=== PATIENT | female | born 1935 | race African-American/Black ===

== ENCOUNTER 2018-06-03 14:50 | Inpatient (IN) | payer MEDICARE ==
[~2018-06-03] VITALS: Ht 170.2 cm; Wt 87.1 kg
[2018-06-03] MEDS ORDERED: FUROSEMIDE40 MG ORAL (15:07)
[2018-06-03] MEDS ORDERED: POTASSIUM99 M3 PO (15:07)
[2018-06-03] MEDS ORDERED: FISH OIL CAP1000 MG ORAL (15:07)
[2018-06-03] MEDS ORDERED: ASPIR 8181 MG ORAL (15:07)
[2018-06-03] MEDS ORDERED: ALLOPURINOL100 M1 ORAL (15:07)
[2018-06-03] MEDS ORDERED: LEVOTHYROXINE75 MCG ORAL (15:07)
[2018-06-03] MEDS ORDERED: MULTIVITAMINS1 EAC2 ORAL (15:07)
[2018-06-03] MEDS ORDERED: OXYTROL1 EACH ORAL (15:07)
[2018-06-03] MEDS ORDERED: LISINOPRIL40 MG ORAL (15:07)
[2018-06-03] MEDS ORDERED: CATAPRES0.2 MG ORAL (15:07)
[2018-06-03] MEDS ORDERED: Sodium Chloride 500ML 500 ML IV ONE (15:10)
--- NOTE | 2018-06-03 15:11 | Emergency Room Report ---
History of Present Illness General Chief Complaint: Generalized Weakness Source: Patient Present Illness HPI 83-year-old female with a history of hypertension hypothyroidism many of generalized weakness for the last 3 days. Patient states that she's been feeling generally weak even though she has been eating and drinking. She lives alone. States that she is more dizzy even when she walks. No shortness chest pain or shortness of breath no syncopal episodes. No fever no chills or abdominal pain Allergies: Coded Allergies: No Known Allergies (Unverified , 06/03/18) Patient History Past Medical History: see triage record Past Surgical History: none Pertinent Family History: none Reviewed Nursing Documentation: PMH: Agreed; PSxH: Agreed Nursing Documentation-PMH Hx Hypertension: Yes Review of Systems All Other Systems: negative except mentioned in HPI Physical Exam Vital Signs Date Time Temp Pulse Resp B/P (MAP) Pulse Ox O2 Delivery O2 Flow Rate FiO2 06/03/18 15:01 98.0 87 18 125/75 97 Room Air 98.1 Sp02 EP Interpretation: reviewed, normal General Appearance: alert, GCS 15, non-toxic, moderate distress Head: normocephalic, atraumatic Eyes: bilateral eye normal inspection, bilateral eye PERRL, bilateral eye EOMI ENT: normal ENT inspection, normal pharynx, normal voice, moist mucus membranes Neck: normal inspection, full range of motion, supple Respiratory: normal inspection, lungs clear, normal breath sounds, no respiratory distress, no retraction, no wheezing, speaking full sentences, chest symmetrical Cardiovascular #1: normal inspection, regular rate, rhythm, no edema, normal capillary refill Cardiovascular #2: 2+ radial (R), 2+ radial (L) Gastrointestinal: normal inspection, non tender, soft, non-distended, no guarding Musculoskeletal: normal inspection, back normal, normal range of motion, non- tender Neurologic: normal inspection, alert, oriented x3, responsive, motor strength/ tone normal, sensory intact, normal gait, speech normal Psychiatric: normal inspection, judgement/insight normal, memory normal Skin: normal inspection, normal color, no rash, warm/dry, well hydrated, normal turgor Medical Decision Making Diagnostic Impression: Primary Impression: Atrial fibrillation Additional Impressions: Generalized weakness UTI (urinary tract infection) ER Course 83-year-old female with generalized weakness and dizziness DDX: Vasovagal vs. orthostatic / hypovolemic/dehydration vs. cardiac arrhythmia (SVT , Afib) vs. cardiac (, ACS) vs. PE vs. metabolic (hypoglycemia, hypoxia), vs neuro (seizure, CVA, intracranial bleed) Plan: bgm, cbc, bmp, ekg, cxr consider IVF ER course: Patient has remained stable during ED stay. +afib on monitor and on EKG states she has never had this before continues to feel weak, given fluids abx given for uti Disposition: Patient requires admission to telemetry. D/W hospitalist Dr gates Please note that this Emergency Department Report was dictated using [employer] chaser technology software, occasionally this can lead to erroneous entry secondary to interpretation by the dictation equipment EKG Diagnostic Results EP Interpretation: Yes Rate: normal Rhythm: Atrial fibrillation ST Segments: ASA given to patient: No Rhythm Strip EP Interpretation: Yes Rate: 79 Rhythm: Atrial fibrillation Chest X-ray CXR: Ordered: Yes 1 view Indication: Syncope EP interpretation: Yes Interpretation: No consolidation, no effusion, no PTX, no acute cardiopulmonary disease Impression: No acute disease Electronically signed by Chon Gardner MD Laboratory Tests Test 06/03/18 15:03 06/03/18 15:30 06/03/18 15:45 White Blood Count 7.2 K/UL (4.8-10.8) Red Blood Count 4.46 M/UL (4.20-5.40) Hemoglobin 13.5 G/DL (12.0-16.0) Hematocrit 40.8 % (37.0-47.0) Mean Corpuscular Volume 92 FL (80-99) Mean Corpuscular Hemoglobin 30.3 PG (27.0-31.0) Mean Corpuscular Hemoglobin Concent 33.1 G/DL (32.0-36.0) Red Cell Distribution Width 12.8 % (11.6-14.8) Platelet Count 168 K/UL (150-450) Mean Platelet Volume 7.5 FL (6.5-10.1) Neutrophils (%) (Auto) 60.0 % (45.0-75.0) Lymphocytes (%) (Auto) 28.1 % (20.0-45.0) Monocytes (%) (Auto) 9.3 % (1.0-10.0) Eosinophils (%) (Auto) 1.1 % (0.0-3.0) Basophils (%) (Auto) 1.5 % (0.0-2.0) Sodium Level 139 MMOL/L (136-145) Potassium Level 4.9 MMOL/L (3.5-5.1) Chloride Level 105 MMOL/L (98-107) Carbon Dioxide Level 23 MMOL/L (21-32) Anion Gap 11 mmol/L (5-15) Blood Urea Nitrogen 21 mg/dL (7-18) H Creatinine 1.4 MG/DL (0.55-1.30) H Estimate Glomerular Filtration Rate mL/min (>60) Glucose Level 102 MG/DL (74-106) Calcium Level 9.4 MG/DL (8.5-10.1) Total Bilirubin 0.6 MG/DL (0.2-1.0) Aspartate Amino Transferase (AST) 27 U/L (15-37) Alanine Aminotransferase (ALT) 24 U/L (12-78) Alkaline Phosphatase 87 U/L (46-116) Total Creatine Kinase 112 U/L (26-308) Troponin I 0.010 ng/mL (0.000-0.056) Pro-B-Type Natriuretic Peptide 1168 pg/mL (0-125) H Total Protein 8.2 G/DL (6.4-8.2) Albumin 3.1 G/DL (3.4-5.0) L Globulin 5.1 g/dL Albumin/Globulin Ratio 0.6 (1.0-2.7) L Prothrombin Time 10.9 SEC (9.30-11.50) Prothrombin Time INR 1.0 (0.9-1.1) PTT 22 SEC (23-33) L Urine Color Pending Urine Appearance Pending Urine pH Pending Urine Specific [place] Pending Urine Protein Pending Urine Glucose (UA) Pending Urine Ketones Pending Urine Occult Blood Pending Urine Nitrite Pending Urine Bilirubin Pending Urine Urobilinogen Pending Urine Leukocyte Esterase Pending Last Vital Signs Date Time Temp Pulse Resp B/P (MAP) Pulse Ox O2 Delivery O2 Flow Rate FiO2 06/03/18 15:01 98.0 87 18 125/75 97 Room Air 98.1 Disposition: ADMITTED INPATIENT Condition: Serious Chon Gardner M.D. Jun 03, 2018 15:11
[2018-06-03 15:45] LABS: BASOPHILS % (AUTO) 1.5 % (0.0-2.0); EOSINOPHILS % (AUTO) 1.1 % (0.0-3.0); HEMATOCRIT 40.8 % (37.0-47.0); HEMOGLOBIN 13.5 G/DL (12.0-16.0); LYMPHOCYTES % (AUTO) 28.1 % (20.0-45.0); MEAN CORPUSCULAR VOLUME 92 FL (80-99); MONOCYTES % (AUTO) 9.3 % (1.0-10.0); PLATELET COUNT 168 K/UL (150-450); RED BLOOD COUNT 4.46 M/UL (4.20-5.40); RED CELL DISTRIBUTION WIDTH 12.8 % (11.6-14.8); WHITE BLOOD COUNT 7.2 K/UL (4.8-10.8)
--- NOTE | 2018-06-03 15:49 | Diagnostic Imaging Report ---
Indication: Chest Technique: XRAY Chest 1v Comparison: None Findings: Heart size within normal limits given technique. There is no focal consolidation, pneumothorax or pleural effusion. Osseous structures demonstrate no acute abnormality. Impression: No radiographic evidence of acute cardiopulmonary disease.
[2018-06-03 15:51] VITALS: BP 117/71
[2018-06-03 15:55] LABS: ANION GAP 11 mmol/L (5-15); BLOOD UREA NITROGEN 21 mg/dL (7-18); CALCIUM 9.4 MG/DL (8.5-10.1); CARBON DIOXIDE 23 MMOL/L (21-32); CHLORIDE 105 MMOL/L (98-107); CREATININE 1.4 MG/DL (0.55-1.30); POTASSIUM 4.9 MMOL/L (3.5-5.1); SODIUM 139 MMOL/L (136-145)
[2018-06-03 16:05] LABS: ALANINE AMINOTRANSFERASE 24 U/L (12-78); ALBUMIN 3.1 G/DL (3.4-5.0); ALBUMIN/GLOBULIN RATIO 0.6 (1.0-2.7); ALKALINE PHOSPHATASE 87 U/L (46-116); ASPARTATE AMINO TRANSFERASE 27 U/L (15-37); BILIRUBIN,TOTAL 0.6 MG/DL (0.2-1.0); CREATINE KINASE 112 U/L (26-308)
[2018-06-03] MEDS ORDERED: DITROPAN10 MG ORAL (17:43)
[2018-06-03 20:02] LABS: APPEARANCE,URINE CLEAR; BILIRUBIN, URINE NEGATIVE (NEGATIVE); GLUCOSE, URINE (UA) NEGATIVE (NEGATIVE); KETONES,URINE NEGATIVE (NEGATIVE); LEUKOCYTE ESTERASE ,URINE 3+ (NEGATIVE); NITRITE,URINE POSITIVE (NEGATIVE); PH,URINE 8 (4.5-8.0); PROTEIN,URINE NEGATIVE (NEGATIVE); UROBILINOGEN,URINE 1 MG/DL (0.0-1.0)
[2018-06-03 20:03] LABS: COLOR,URINE YELLOW
[2018-06-03] MEDS ORDERED: cefTRIAXone 1 GM in D5W 55 ML IVPB ONE (20:15)
[2018-06-03 20:30] VITALS: BP 142/73
[2018-06-03 21:00] VITALS: BP 146/83
[2018-06-03] MEDS: Metoprolol Tartrate 12.5mg TAB ORAL SCH (21:15)
[2018-06-04] VITALS: BP 148/78
[2018-06-04 04:00] VITALS: BP 142/81
[2018-06-04 08:16] VITALS: BP 151/96
[2018-06-04] MEDS ORDERED: Aspirin EC 81mg tab ORAL SCH (09:00)
[2018-06-04 09:44] LABS: ALANINE AMINOTRANSFERASE 26 U/L (12-78); ALBUMIN 2.9 G/DL (3.4-5.0); ALBUMIN/GLOBULIN RATIO 0.5 (1.0-2.7); ALKALINE PHOSPHATASE 92 U/L (46-116); ANION GAP 11 mmol/L (5-15); ASPARTATE AMINO TRANSFERASE 28 U/L (15-37); BILIRUBIN,TOTAL 0.6 MG/DL (0.2-1.0); BLOOD UREA NITROGEN 13 mg/dL (7-18); CALCIUM 9.3 MG/DL (8.5-10.1); CARBON DIOXIDE 25 MMOL/L (21-32); CHLORIDE 107 MMOL/L (98-107); SODIUM 143 MMOL/L (136-145)
[2018-06-04] MEDS: cefTRIAXone 1 GM in D5W 55 ML IVPB SCH (10:28)
[2018-06-04] MEDS: Metoprolol Tartrate 12.5mg TAB ORAL SCH ×2 (10:28→10:30)
[2018-06-04] MEDS: Oxybutynin 5mg tab ORAL SCH ×2 (10:30→17:29)
[2018-06-04] MEDS: Allopurinol 100mg Tab ORAL SCH ×2 (10:30→17:29)
[2018-06-04] MEDS: Xarelto 15mg tab ORAL SCH (10:30)
[2018-06-04 11:43] VITALS: BP 153/78
--- NOTE | 2018-06-04 14:30 | History and Physical Report ---
DATE OF ADMISSION: 06/03/2018 CHIEF COMPLAINT: New onset atrial fibrillation. HISTORY OF PRESENT ILLNESS: The patient is a pleasant 83-year-old female. She has a history of hypertension and "leaky valve." She has a prior history of a malignant kidney tumor, status post resection, who presented with complaints of dizziness, poor appetite, malaise, weakness, and fevers. According to the patient, she was well. Three days ago, she developed some generalized malaise, weakness, fevers, and muscle aches. She felt like she had some type of virus or flu. Her symptoms were better two days ago, but on the day of admission, her symptoms returned. She presented to the emergency room. On evaluation there, the patient was noted to be in atrial fibrillation, but was rate controlled. She also had evidence of a possible UTI, has been started on IV antibiotic therapy. She is now admitted for further evaluation and care. PAST MEDICAL HISTORY: As above. She has a history of goiter. PAST SURGICAL HISTORY: Includes also hysterectomy. CURRENT MEDICATIONS: Reconciled and reviewed. FAMILY HISTORY: Noncontributory. SOCIAL HISTORY: Negative for tobacco, ethanol, or drugs. REVIEW OF SYSTEMS: GENERAL: Positive fevers, but no chills. HEENT: No headaches or visual changes. CARDIOPULMONARY: No chest pain or shortness of breath. GASTROINTESTINAL: No nausea or vomiting. Positive anorexia. GENITOURINARY: No urgency or frequency. MUSCULOSKELETAL: No joint pain or swelling. NEUROLOGIC: No evidence of seizures. PHYSICAL EXAMINATION: VITAL SIGNS: Temperature 97, pulse 70, respirations 20, and blood pressure 151/96. GENERAL: The patient is well developed, no apparent distress. HEART: Irregularly irregular. LUNGS: Clear. ABDOMEN: Soft, nontender, and nondistended. EXTREMITIES: Without clubbing or cyanosis. LABORATORY DATA: UA showed 5 to 10 wbc's. White count 7 and hemoglobin 13. Coags are normal. Sodium 139, potassium 4.9, chloride 105, bicarb 23, BUN 21, and creatinine 1.4. Troponin was negative. TSH is 0.918. ASSESSMENT: This is a pleasant female, admitted with complaints of generalized malaise, weakness, suspect secondary to dehydration, cannot rule out some component of her new onset atrial fibrillation. 1. New onset atrial fibrillation. 2. Dehydration. 3. UTI. 4. History of hypertensive heart disease. 5. History of partial nephrectomy. 6. History of kidney tumor. 7. History of goiter on Synthroid for goiter suppression. PLAN: IV hydration. The patient has been already placed on Xarelto for stroke prophylaxis. We will check an echo. We will repeat full thyroid function tests, antibiotics, urinary tract infection. Cardiology consultation will be obtained. Marin Flower M.D. DR: ANGÉLICA JOB#: [id number] CC:
--- NOTE | 2018-06-04 15:20 | Cardiology Report ---
APPROVED REPORT EXAM: Two-dimensional and M-mode echocardiogram with Doppler and color Doppler. INDICATION Atrial Fibrillation M-Mode DIMENSIONS IVSd2.3 (0.7-1.1cm)Left Atrium (MM)5.3 (1.6-4.0cm) LVDd5.6 (3.5-5.6cm)Aortic Root3.7 (2.0-3.7cm) PWd1.0 (0.7-1.1cm)Aortic Cusp Exc.1.9 (1.5-2.0cm) LVDs4.4 (2.5-4.0cm) PWs0.9 cm Normal left ventricular chamber size, systolic function and wall motion. Left ventricular ejection fraction estimated to be 60 %. Mild left ventricular hypertrophy with prominent basal septum. No evidence of pericardial effusion. Mild left atrial enlargement. Right atrial size at upper limits of normal. Right ventricular chamber size is within normal limits. Focal aortic valve sclerosis with adequate cusp excursion. Thickened mitral valve leaflets with normal excursion. Mitral annulus and aortic root calcification. Pulmonic valve not well visualized. Normal tricuspid valve structure. IVC dilated at 2.6 cm without physiologic collapse suggestive of increased RA pressure. A color flow and spectral Doppler study was performed and revealed: Trace aortic regurgitation. Moderate mitral regurgitation. Can not determine left ventricular diastolic function by mitral diastolic velocities due to atrial fibrillation. Mild tricuspid regurgitation. Tricuspid systolic velocities suggests peak right ventricular systolic pressure of 43 mmHg, consistent with mild to moderate pulmonary hypertension. Trace pulmonic regurgitation present.
[2018-06-04 16:00] VITALS: BP 159/78
--- NOTE | 2018-06-04 16:23 | Cardiology Report ---
APPROVED REPORT EKG Measurement Heart [id number] Atrial fibrillation Rightward axis Low voltage QRS Septal infarct, age undetermined Abnormal ECG
[2018-06-04 20:00] VITALS: BP 146/77
--- NOTE | 2018-06-04 21:50 | Cardiology Progress Note ---
Assessment/Plan Assessment/Plan The patient is seen and examined, full consult note will be dictated. Objective Last 24 Hour Vital Signs Date Time Temp Pulse Resp B/P (MAP) Pulse Ox O2 Delivery O2 Flow Rate FiO2 06/04/18 16:00 98.7 62 19 159/78 (105) 99 98.7 06/04/18 16:00 57 06/04/18 12:00 65 06/04/18 11:43 98.0 62 19 153/78 (103) 99 98.0 06/04/18 10:30 78 151/96 06/04/18 10:28 78 151/96 06/04/18 09:00 Room Air 06/04/18 08:16 97.8 78 20 151/96 (114) 97 97.8 06/04/18 08:00 77 06/04/18 04:00 53 06/04/18 04:00 97.7 60 20 142/81 (101) 94 97.7 06/04/18 00:00 71 06/04/18 00:00 97.9 58 20 148/78 (101) 98 97.9 06/03/18 22:06 59 Intake and Output 06/03/18 06/04/18 19:00 07:00 Intake Total 700 ml Output Total 900 ml Balance -200 ml Intake Oral 50 ml IV Total 650 ml Output Urine Total 900 ml # Voids 4 Laboratory Tests Test 06/04/18 07:30 06/04/18 07:35 Sodium Level 143 MMOL/L (136-145) Potassium Level 4.0 MMOL/L (3.5-5.1) Chloride Level 107 MMOL/L (98-107) Carbon Dioxide Level 25 MMOL/L (21-32) Anion Gap 11 mmol/L (5-15) Blood Urea Nitrogen 13 mg/dL (7-18) Creatinine 1.0 MG/DL (0.55-1.30) Estimat Glomerular Filtration Rate mL/min (>60) Glucose Level 88 MG/DL (74-106) Calcium Level 9.3 MG/DL (8.5-10.1) Total Bilirubin 0.6 MG/DL (0.2-1.0) Aspartate Amino Transf (AST/SGOT) 28 U/L (15-37) Alanine Aminotransferase (ALT/SGPT) 26 U/L (12-78) Alkaline Phosphatase 92 U/L (46-116) Total Protein 8.2 G/DL (6.4-8.2) Albumin 2.9 G/DL (3.4-5.0) L Globulin 5.3 g/dL Albumin/Globulin Ratio 0.5 (1.0-2.7) L Thyroid Stimulating Hormone (TSH) 0.909 uiU/mL (0.358-3.740) Free Thyroxine 1.66 NG/DL (0.76-1.46) H Free Triiodothyronine 1.7 pg/mL (2.3-4.2) L Troponin I 0.005 ng/mL (0.000-0.056) Rafael Vines MD Jun 04, 2018 21:50
[2018-06-05] VITALS: BP 176/85
--- NOTE | 2018-06-05 02:30 | Consultation ---
DATE OF CONSULTATION: 06/04/2018 CARDIOLOGY CONSULTATION CONSULTING PHYSICIAN: Rafael Vines M.D. REFERRING PHYSICIAN: Marin Flower M.D. REASON FOR CONSULTATION: Management of atrial fibrillation. HISTORY OF PRESENT ILLNESS: The patient is a very unfortunate 83-year-old female, who presents to the hospital with generalized weakness as well as feeling dizzy and lightheaded. At the time of arrival to the hospital, initial blood pressure was 125/75 mmHg and pulse of 87. A 12-lead electrocardiogram reveals new onset atrial fibrillation with controlled ventricular response, which was likely . It appears that this arrhythmia is new to the patient. The patient has also been complaining of fatigue and tired during her usual activities of daily living. The patient denies any prior history of cardiac arrhythmia, coronary artery disease, or congestive heart failure. PAST MEDICAL HISTORY: 1. Hypertension. 2. Hypothyroidism. 3. History of dyslipidemia. 4. History of gout. LIST OF MEDICATIONS: Allopurinol 100 mg p.o. twice daily, aspirin 81 mg p.o. daily, clonidine 0.2 mg q.12 hours, fish oil 1200 mg p.o. daily, Lasix 40 mg p.o. daily, levothyroxine 75 mcg p.o. daily, lisinopril 40 mg p.o. daily, multivitamin one tablet p.o. daily, oxybutynin chloride 5 mg p.o. twice daily, and potassium gluconate 20 mg p.o. twice daily. ALLERGIES: No known drug allergies. FAMILY HISTORY: No premature coronary artery disease or arrhythmogenic in the first-degree relatives. SOCIAL HISTORY: Denies any tobacco, alcohol, or illicit drug use. REVIEW OF SYSTEMS: A 12-system review done is essentially negative except what is mentioned in the history of present illness. PHYSICAL EXAMINATION: VITAL SIGNS: Blood pressure is 125/75, respirations 18, pulse of 87, temperature 98.0 degrees Fahrenheit, and O2 saturation 97% on room air. GENERAL: The patient is a very pleasant 83-year-old female, in no apparent respiratory distress. Alert and oriented x4. HEENT: Atraumatic and normocephalic. Anicteric. Pupils are equal, round, and reactive to light and accommodation. Extraocular muscles intact. NECK: JVP less than 5 cm. No carotid bruit. Carotid upstrokes 2+ bilaterally. CVS: Normal S1 and S2. Irregularly irregular rhythm. A 2/6 mid systolic murmur at the left sternal border. PMI is at fourth intercostal space in the midclavicular line. LUNGS: Clear to auscultation bilaterally. ABDOMEN: Soft, nontender, and nondistended. No hepatosplenomegaly. Positive bowel sounds. EXTREMITIES: No evidence of edema, clubbing, or cyanosis. LABORATORY AND DIAGNOSTIC FINDINGS: INR is 1.0. Sodium was 139, potassium is 4.9, chloride 105, bicarbonate 23, BUN of 21, creatinine 1.4, glucose is 102, and calcium is 9.4. ProBNP was 1168. WBC 7.2, hemoglobin 13.5, hematocrit of 40.8, and platelet count is 168,000. A 12-lead electrocardiogram showed atrial fibrillation at a rate of [address] and T-wave abnormalities. DIAGNOSTIC DATA: Chest x-ray showed no acute cardiopulmonary disease. ASSESSMENT AND PLAN: The patient is a very unfortunate 83-year-old female seen in Cardiology consultation at the request of Dr. Flower. 1. New-onset atrial fibrillation with controlled ventricular response. The patient is symptomatic, probable rate controlled. We would like to continue with metoprolol 12.5 mg twice daily. I agree with the rivaroxaban 15 mg daily as the patient has high [id number] score including gender, history of hypertension, and age above 75. The patient continues to be symptomatic. GLENN and cardioversion will be done to restore sinus rhythm. We will discuss this option with the patient . 2. History of hypertension. I would like to add amlodipine for the aim of keeping blood pressure below 130/80 mmHg. A 2D echocardiography was done to assess left ventricular systolic and diastolic function. I would like to thank, Dr. Flower, for the courtesy of this consultation. Rafael Vines M.D. DR: CASEY JOB#: [id number] CC:
[2018-06-05 04:00] VITALS: BP 182/97
[2018-06-05 08:00] VITALS: BP 179/98
--- NOTE | 2018-06-05 08:50 | General Progress Note ---
Assessment/Plan Problem List: (1) New onset a-fib ICD Codes: I48.91 - Unspecified atrial fibrillation SNOMED: 40764909 (2) Atrial fibrillation with rapid ventricular response ICD Codes: I48.91 - Unspecified atrial fibrillation SNOMED: 235468798458708 (3) Hypertensive urgency, malignant ICD Codes: I16.0 - Hypertensive urgency SNOMED: 566333081 Status: stable Assessment/Plan added acei cont xarelto cards follow up mobilize pt/ot synthroid dcd(used for goiter suppression) Subjective ROS Limited/Unobtainable: No Constitutional: Reports: malaise, weakness HEENT: Reports: no symptoms Cardiovascular: Reports: no symptoms Respiratory: Reports: no symptoms Gastrointestinal/Abdominal: Reports: no symptoms Genitourinary: Reports: no symptoms Neurologic/Psychiatric: Reports: weakness Endocrine: Reports: no symptoms Hematologic/Lymphatic: Reports: no symptoms Allergies: Coded Allergies: No Known Allergies (Unverified , 06/03/18) All Systems: reviewed and negative except above Subjective no new complaints. no dizziness. no fever or chills. no chest pain no sob. remains in afib but now rate controlled. BP still very high. Objective Last 24 Hour Vital Signs Date Time Temp Pulse Resp B/P (MAP) Pulse Ox O2 Delivery O2 Flow Rate FiO2 06/05/18 08:00 97.7 99 18 179/98 (125) 97 97.7 06/05/18 04:00 97.1 87 20 182/97 (125) 97 97.1 06/05/18 03:55 79 06/05/18 01:32 70 176/85 06/05/18 00:00 98.7 70 20 176/85 (115) 96 98.7 06/04/18 23:36 70 06/04/18 21:00 Room Air 06/04/18 20:00 98.4 70 20 146/77 (100) 100 98.4 06/04/18 19:13 71 06/04/18 16:00 98.7 62 19 159/78 (105) 99 98.7 06/04/18 16:00 57 06/04/18 12:00 65 06/04/18 11:43 98.0 62 19 153/78 (103) 99 98.0 06/04/18 10:30 78 151/96 06/04/18 10:28 78 151/96 06/04/18 09:00 Room Air Intake and Output 06/04/18 06/05/18 19:00 07:00 Intake Total 1280 ml 900 ml Balance 1280 ml 900 ml Intake Oral 400 ml IV Total 880 ml 900 ml # Voids 3 2 # Bowel Movements 2 Height (Feet): 5 Height (Inches): 7.00 Weight (Pounds): 192 General Appearance: WD/WN, alert Neck: supple Cardiovascular: irregularly irregular Respiratory/Chest: chest wall non-tender, lungs clear, normal breath sounds, no respiratory distress Abdomen: normal bowel sounds, non tender, soft, no organomegaly Edema: no edema noted Arm (L), no edema noted Arm (R), no edema noted Leg (L), no edema noted Leg (R), no edema noted Pedal (L), no edema noted Pedal (R), no edema noted 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
[2018-06-05] MEDS ORDERED: Lisinopril 20mg tab ORAL SCH (09:00)
[2018-06-05 09:10] LABS: CHOLESTEROL 154 MG/DL (< 200); HDL CHOLESTEROL 63 MG/DL (40-60); TRIGLYCERIDES 107 MG/DL (30-150)
[2018-06-05] MEDS: cefTRIAXone 1 GM in D5W 55 ML IVPB SCH (09:16)
[2018-06-05] MEDS: Oxybutynin 5mg tab ORAL SCH ×2 (09:17→18:05)
[2018-06-05] MEDS: Metoprolol 25mg tab ORAL SCH ×2 (09:17→21:25)
[2018-06-05] MEDS: Xarelto 15mg tab ORAL SCH (09:17)
[2018-06-05] MEDS: Allopurinol 100mg Tab ORAL SCH ×2 (09:18→18:05)
[2018-06-05 12:00] VITALS: BP 187/101
[2018-06-05 16:00] VITALS: BP 187/96
--- NOTE | 2018-06-05 19:54 | Cardiology Progress Note ---
Assessment/Plan Assessment/Plan 1. New-onset atrial fibrillation with controlled ventricular response, continue metoprolol and rivaroxaban. 2. History of hypertension, continue with amlodipine. Subjective Subjective [place] fib. with controlled ventricular response at 65. Objective Last 24 Hour Vital Signs Date Time Temp Pulse Resp B/P (MAP) Pulse Ox O2 Delivery O2 Flow Rate FiO2 06/05/18 16:00 65 06/05/18 16:00 98.8 65 18 187/96 (126) 96 98.8 06/05/18 12:00 97.6 73 18 187/101 (129) 97 97.6 06/05/18 12:00 66 06/05/18 09:17 179/98 06/05/18 09:17 99 179/98 06/05/18 09:17 99 179/98 06/05/18 09:00 Room Air 06/05/18 08:00 97.7 99 18 179/98 (125) 97 97.7 06/05/18 08:00 82 06/05/18 04:00 97.1 87 20 182/97 (125) 97 97.1 06/05/18 03:55 79 06/05/18 01:32 70 176/85 06/05/18 00:00 98.7 70 20 176/85 (115) 96 98.7 06/04/18 23:36 70 06/04/18 21:00 Room Air 06/04/18 20:00 98.4 70 20 146/77 (100) 100 98.4 Intake and Output 06/04/18 06/05/18 19:00 07:00 Intake Total 1280 ml 900 ml Balance 1280 ml 900 ml Intake Oral 400 ml IV Total 880 ml 900 ml # Voids 3 2 # Bowel Movements 2 2D Echo: EF 60%, Mild LVH, Mod MR, RVSP 43 mmHg Laboratory Tests Test 06/05/18 07:00 Triglycerides Level 107 MG/DL (30-150) Cholesterol Level 154 MG/DL (< 200) LDL Cholesterol 89 mg/dL (<100) HDL Cholesterol 63 MG/DL (40-60) H Cholesterol/HDL Ratio 2.4 (3.3-4.4) L Microbiology Date/Time Source Procedure Growth Status 06/03/18 18:47 Urine,Clean Catch Urine Culture - Preliminary Gram Negative Bacillus 1 Resulted Objective HEENT: Atraumatic and normocephalic. Anicteric. Pupils are equal, round, and reactive to light and accommodation. Extraocular muscles intact. NECK: JVP less than 5 cm. No carotid bruit. Carotid upstrokes 2+ bilaterally. CVS: Normal S1 and S2. Irregularly irregular rhythm. A 2/6 mid systolic murmur at the left sternal border. PMI is at fourth intercostal space in the midclavicular line. LUNGS: Clear to auscultation bilaterally. ABDOMEN: Soft, nontender, and nondistended. No hepatosplenomegaly. Positive bowel sounds. EXTREMITIES: No evidence of edema, clubbing, or cyanosis. Rafael Vines MD Jun 05, 2018 19:54
[2018-06-05 20:00] VITALS: BP 184/98
[2018-06-06] VITALS: BP 170/75
[2018-06-06 04:00] VITALS: BP 169/98
[2018-06-06 08:00] VITALS: BP 152/94
--- NOTE | 2018-06-06 08:33 | General Progress Note ---
Assessment/Plan Problem List: (1) New onset a-fib ICD Codes: I48.91 - Unspecified atrial fibrillation SNOMED: 27393423 (2) Atrial fibrillation with rapid ventricular response ICD Codes: I48.91 - Unspecified atrial fibrillation SNOMED: 535416237872382 (3) Hypertensive urgency, malignant ICD Codes: I16.0 - Hypertensive urgency SNOMED: 665819480 Status: stable, progressing Assessment/Plan increase acei cont xarelto cards follow up mobilize pt/ot synthroid dcd(used for goiter suppression) po abx needs better BP control before dc Subjective ROS Limited/Unobtainable: No Constitutional: Reports: malaise, weakness HEENT: Reports: no symptoms Cardiovascular: Reports: no symptoms Respiratory: Reports: no symptoms Gastrointestinal/Abdominal: Reports: no symptoms Genitourinary: Reports: no symptoms Neurologic/Psychiatric: Reports: no symptoms Endocrine: Reports: no symptoms Hematologic/Lymphatic: Reports: no symptoms Allergies: Coded Allergies: No Known Allergies (Unverified , 06/03/18) All Systems: reviewed and negative except above Subjective no new complaints. no dizziness. no fever or chills. no chest pain no sob. remains in afib but now rate controlled. BP still very high. cards noted. Ucx with ecoli Objective Last 24 Hour Vital Signs Date Time Temp Pulse Resp B/P (MAP) Pulse Ox O2 Delivery O2 Flow Rate FiO2 06/06/18 04:00 64 06/06/18 04:00 99.3 73 20 169/98 (121) 96 99.3 06/06/18 00:00 98.4 70 20 170/75 (106) 100 98.4 06/06/18 00:00 78 06/05/18 21:25 65 187/96 06/05/18 20:00 100.0 83 20 184/98 (126) 100 100.0 06/05/18 16:00 65 06/05/18 16:00 98.8 65 18 187/96 (126) 96 98.8 06/05/18 12:00 97.6 73 18 187/101 (129) 97 97.6 06/05/18 12:00 66 06/05/18 09:17 179/98 06/05/18 09:17 99 179/98 06/05/18 09:17 99 179/98 06/05/18 09:00 Room Air Intake and Output 06/05/18 06/06/18 19:00 07:00 Intake Total 1240 ml Balance 1240 ml Intake Oral 360 ml IV Total 880 ml # Voids 4 5 # Bowel Movements 1 Height (Feet): 5 Height (Inches): 7.00 Weight (Pounds): 192 Objective General Appearance: WD/WN, alert Neck: supple Cardiovascular: irregularly irregular Respiratory/Chest: chest wall non-tender, lungs clear, normal breath sounds, no respiratory distress Abdomen: normal bowel sounds, non tender, soft, no organomegaly Edema: no edema noted Arm (L), no edema noted Arm (R), no edema noted Leg (L), no edema noted Leg (R), no edema noted Pedal (L), no edema noted Pedal (R), no edema noted 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
[2018-06-06] MEDS ORDERED: Lisinopril 20mg tab ORAL SCH (09:00)
[2018-06-06] MEDS: Xarelto 15mg tab ORAL SCH (09:31)
[2018-06-06] MEDS: Oxybutynin 5mg tab ORAL SCH ×2 (09:31→17:18)
[2018-06-06] MEDS: Metoprolol 25mg tab ORAL SCH (09:32)
[2018-06-06] MEDS: cefTRIAXone 1 GM in D5W 55 ML IVPB SCH (09:33)
[2018-06-06] MEDS: Allopurinol 100mg Tab ORAL SCH ×2 (09:37→17:18)
[2018-06-06] MEDS: Cephalexin 500mg cap ORAL SCH ×3 (10:22→17:17)
[2018-06-06 12:10] VITALS: BP 157/96
--- NOTE | 2018-06-06 13:00 | Cardiology Progress Note ---
Assessment/Plan Assessment/Plan 1. New-onset atrial fibrillation with controlled ventricular response. Continue metoprolol and Xarelto. Normal LVEF at 60%. 2. Hypertensive heart disease, currently hypertension, stage III, continue lisinopril, amlodipine and metoprolol. 3. Moderate pulmonary HTN. Subjective Subjective Atrial fib. at 64. No new cardiac events. Objective Last 24 Hour Vital Signs Date Time Temp Pulse Resp B/P (MAP) Pulse Ox O2 Delivery O2 Flow Rate FiO2 06/06/18 12:10 98.1 64 22 157/96 (116) 97 98.1 06/06/18 09:33 169/98 06/06/18 09:32 64 169/98 06/06/18 09:32 64 169/98 06/06/18 09:00 Room Air 06/06/18 08:00 71 06/06/18 08:00 99.1 71 21 152/94 (113) 96 99.1 06/06/18 04:00 64 06/06/18 04:00 99.3 73 20 169/98 (121) 96 99.3 06/06/18 00:00 98.4 70 20 170/75 (106) 100 98.4 06/06/18 00:00 78 06/05/18 21:25 65 187/96 06/05/18 20:00 100.0 83 20 184/98 (126) 100 100.0 06/05/18 16:00 65 06/05/18 16:00 98.8 65 18 187/96 (126) 96 98.8 Intake and Output 06/05/18 06/06/18 19:00 07:00 Intake Total 1240 ml Balance 1240 ml Intake Oral 360 ml IV Total 880 ml # Voids 4 5 # Bowel Movements 1 2D Echo: EF 60%, mild LVH, Mod MR, RVSP 41 mmHg Microbiology Date/Time Source Procedure Growth Status 06/03/18 18:47 Urine,Clean Catch Urine Culture - Final Escherichia Coli Complete Objective HEENT: Atraumatic and normocephalic. Anicteric. Pupils are equal, round, and reactive to light and accommodation. Extraocular muscles intact. NECK: JVP less than 5 cm. No carotid bruit. Carotid upstrokes 2+ bilaterally. CVS: Normal S1 and S2. Irregularly irregular rhythm. A 2/6 mid systolic murmur at the left sternal border. PMI is at fourth intercostal space in the midclavicular line. LUNGS: Clear to auscultation bilaterally. ABDOMEN: Soft, nontender, and nondistended. No hepatosplenomegaly. Positive bowel sounds. EXTREMITIES: No evidence of edema, clubbing, or cyanosis. Rafael Vines MD Jun 06, 2018 13:00
[2018-06-06 16:00] VITALS: BP 151/80
[2018-06-06] MEDS ORDERED: NORVASC5 MG ORAL (18:43)
[2018-06-06] MEDS ORDERED: KEFLEX500 M1 ORAL (18:43)
[2018-06-06] MEDS ORDERED: PROTONIX40 MG ORAL (18:43)
[2018-06-06] MEDS ORDERED: LOPRESSOR25 M1 ORAL (18:43)
[2018-06-06] MEDS ORDERED: XARELTO10 MG ORAL (20:38)
--- NOTE | 2018-06-09 08:51 | Discharge Summary ---
Discharge Summary Discharge Summary _ DATE OF ADMISSION: 06/03/2018 DATE OF DISCHARGE: 06/06/2018 REASON FOR ADMISSION: 83 years old female with past medical history of hypertension, mitral regurgitation, hypothyroidism ,history of kidney tumor, partial nephrectomy, goiter, presented to emergency department complaining of generalized weakness and dizziness with walking. EKG revealed atrial fibrillation with controlled rate. Patient never had atrial fibrillation the past. Troponin was negative. Pro BNP - 1168. Chest x-ray revealed no acute cardiopulmonary pathology TSH was within normal limits. Urinalysis was consistent with UTI. No leukocytosis , stable hemoglobin and hematocrit . She was diagnosed with new onset of atrial fibrillation with controlled rate, urinary tract infection, dehydration, history of hypertensive heart disease, history of partial nephrectomy , history of kidney tumor, history of goiter. 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 Rate was controlled with beta rey. Anticoagulation with Xarelto started. GI prophylaxis provided. Patient noted to have elevated blood pressure with evidence of hypertensive urgency. Blood pressure was managed with multiply regimen of antihypertensive medications, including beta rey , calcium channel rey and OWEN inhibitor. Dose of medication dose uptitrated to keep blood pressure under control . Blood pressure eventually stabilized. Echocardiogram revealed preserved ejection fraction of 60% and right ventricular systolic pressure of 43 consistent with moderate pulmonary hypertension and evidence of moderate mitral regurgitation. Lipid panel was within normal limits. TSH was within normal limits . Synthroid was used for goiter suppression . Synthroid was discontinued. Urine culture revealed Escherichia coli Patient was on antibiotic. Antibiotics to be continued upon discharge to complete the course. Supportive care provided Patient stabilized and was ready for discharge home FINAL DIAGNOSES: New-onset of atrial fibrillation Dehydration Urinary tract infection with Escherichia coli Hypertensive urgency, malignant, stage III History of partial nephrectomy History of kidney tumor History of goiter DISCHARGE MEDICATIONS: See Medication Reconciliation list. DISCHARGE INSTRUCTIONS: Patient was discharged home. Follow up with primary care provide in one week. I have been assigned to dictate discharge summary for this account. I was not involved in the patient's management. Isabella Eason NP Jun 09, 2018 08:51
== END 2018-06-06 21:30 | disposition home or self-care (01) | DRG 309 ==
LOC: EMR 15:23 → 2E 16:53 → INTOOBSV 16:53 → OBSVTOIN 16:53 → UNDOADMOB 16:53 → EDBEDREQ 17:28 → 2E 23:37 → SDSOVERFLO 06-04 08:29 → 2E 06-04 08:30
DX: I48.91 Unspecified atrial fibrillation (principal); N39.0 Urinary tract infection, site not specified; B96.20 Unspecified Escherichia coli [E. coli] as the cause of diseases classified elsewhere; E86.0 Dehydration; I11.9 Hypertensive heart disease without heart failure; I16.0 Hypertensive urgency; I34.0 Nonrheumatic mitral (valve) insufficiency; E78.5 Hyperlipidemia, unspecified; I27.20 Pulmonary hypertension, unspecified; E04.9 Nontoxic goiter, unspecified
CPT/HCPCS: 36415; 71045; 80053; 80061; 81003; 82550; 83880; 84439; 84443; 84481; 84484; 85025; 85610; 85730; 87086; 87181; 93005; 93306; 99285